=== PATIENT | male | born 1955 | race Caucasian/White ===

== ENCOUNTER → 2025-04-10 08:09 | Outpatient (BNVA) | payer MEDICARE, OTHER, SELFPAY | PROVIDERS: PCP Family Medicine; Referring Provider Neurological Surgery; Visit Provider Psychiatry & Neurology Neurology | DX: M21.372 Foot drop, left foot (principal); M48.061 Spinal stenosis, lumbar region without neurogenic claudication; G62.9 Polyneuropathy, unspecified; I10 Essential (primary) hypertension; E11.9 Type 2 diabetes mellitus without complications | CPT/HCPCS: 99215; 95886; 95908 ==

== ENCOUNTER 2025-06-20 08:52 | Emergency (ER) | payer MEDICARE, OTHER, SELFPAY ==
[2025-06-20 09:00] VITALS: BP 180/92; PULSE 87; RESP 18; TEMP 37.1
--- NOTE | 2025-06-20 09:15 | ED.GENADUL_ITS ---
Discharge Plan Disposition Patient Disposition: Home Condition: Good Discharge Details Clinical Impression: Quadriceps muscle rupture, Acute knee pain, Transaminitis Primary Care Provider: Tj Riley ED Provider: Mary Alice Alvarado Home Meds and New Rx's Prescriptions: Continued pravastatin 10 mg tablet 10 mg PO DAILY sertraline 50 mg tablet 50 mg PO DAILY pantoprazole 40 mg tablet,delayed release (DR/EC) 40 mg PO DAILY cyclobenzaprine 10 mg tablet 10 mg PO TID PRN glimepiride 1 mg tablet 0.5 mg PO DAILY amlodipine 10 MG tablet 10 mg PO DAILY No Action oxycodone 5 mg tablet 5 - 10 mg PO .q4-6h MDD 30 mg PRN (Reason: severe pain) Qty: 18 0RF aspirin 81 mg capsule 81 mg PO DAILY 7 Days Qty: 7 0RF Discharge Instructions Instructions: Knee Pain ED Additional Instructions: Your MRI shows a partial tear in your quadriceps tendon. As we discussed, you may or may not require surgery based on your pain level when you are reevaluated by Dr. Marcial. Please continue with the knee immobilizer to help with discomfort until you are reevaluated by him. Please call his office to schedule follow-up appointment, number listed below. As we also discussed, your labs do show slight elevation in some of your liver enzymes as well as slightly low lymphocytes which can indicate something like a tickborne illness such as Lyme. You have been tested for this and it takes about 5 days to receive the final results. Will call with any positive results. If you develop fever/chills, increased pain, inability stay hydrated or other new/worsening symptoms please seek care urgently once again. Otherwise, please keep your upcoming appointment with orthopedics and follow up with your primary care in 2 weeks to discuss blood work. Referrals: Morgan Marcial MD [ [facility] STAFF PHYSICIAN, Orthopaedic Surgical] Tj Riley [Primary Care Provider, Medicine] Discharge Data Discharge Date/Time-TO BE ENTERED AT DEPARTURE: 06/20/25 13:32 HPI General Date/Time Provider Initiated Documentation: 06/20/25 10:21 . Limitations to Documentation: no limitations . Information obtained by: patient, family (), RN/ (Dr. Marcial) and RN notes reviewed . History of Present Illness 69 year old M presents to the emergency department with the chief complaint of right knee pain, described as severe and similar to prior episodes (similar event 1.5 months ago), Quality is described as stabbing and aching, and is localized to the right and lower extremity. Patient reports no radiation. Patient started experiencing this day(s) and it has been constant. Immobilization improves symptom(s), Movement worsens symptoms . Patient notes no other symptoms. and weakness; denies chest pain, fever/chills, malaise, nausea/vomiting, rash and shortness of breath. Patient did receive the following treatments prior to arrival, NSAID Related Data Home Medications ?Medication ?Instructions ?Recorded ?Confirmed amlodipine 10 mg tablet 10 mg PO DAILY 12/12/1506/08 cyclobenzaprine 10 mg tablet 10 mg PO TID PRN 02/12/25 06/21/25 glimepiride 1 mg tablet 0.5 mg PO DAILY 02/12/25 pantoprazole 40 mg tablet,delayed 40 mg PO DAILY 04/1006/21/25 release pravastatin 10 mg tablet 10 mg PO DAILY 04/10/2506/08 sertraline 50 mg tablet 50 mg PO DAILY 04/10/2506/08 aspirin 81 mg capsule 81 mg PO DAILY prevent blood clot 06/21/25 7 days #7 caps oxycodone 5 mg tablet 5 - 10 mg (1 - 2 x 5 mg) PO .q4-6h 06/21/25 PRN severe pain #18 tabs Previous Rx's ?Medication ?Instructions ?Recorded aspirin 81 mg capsule 81 mg PO DAILY prevent blood clot 06/21/25 7 days #7 caps oxycodone 5 mg tablet 5 - 10 mg (1 - 2 x 5 mg) PO .q4-6h 06/21/25 PRN severe pain #18 tabs Allergies Allergy/AdvReac Type Severity Reaction Status Date / Time NSAIDS (Non-Steroidal Allergy Intermediate HX Verified 06/21/25 08:50 Anti-Inflamma NEPHRECTOMY fentanyl Allergy Unknown Other (See Verified 06/21/25 08:50 Comment) General Stated Complaint: Orthopedic BRANDON: 3 Review of Systems Constitutional Constitutional: Reports as per HPI, Denies chills and Denies fever(s) Cardiovascular Cardiovascular: Reports as per HPI Respiratory Respiratory: Reports as per HPI and Denies cough Musculoskeletal Musculoskeletal: Reports as per HPI and Denies tingling Integumentary/Breasts Skin/Breast: Reports as per HPI, Denies rash and Denies wounds Neurologic Neurologic: Reports as per HPI, Denies tingling and Denies paresthesias Exam Const General: cooperative, healthy appearing, comfortable, no acute distress, well developed and well groomed Nutritional Appearance: average body habitus and well nourished Orientation: alert and awake Resp Effort & Inspection: normal respiratory effort, able to speak in complete sentences and no respiratory distress Cardio Rate: regular rate Rhythm: regular rhythm Skin General skin exam: no rashes or lesions noted Lesions: no lesions Rashes: no rashes Trauma: no lacerations or abrasions Neuro General: patient alert and patient awake Cognition: normal cognition Speech: speech normal Sensory Exam: no sensory deficits noted Extrem Knee images: 2 1. Area of discomfort. Patient has slight deformity at the proximal knee with muscle atrophy. 2+ distal pulses. Able to flex to 90* actively, no leg raise. Sensation intact. No evidence of trauma, no swelling, ecchymosis. Small effusion. No erythema or warmth. Calf is soft and non-tender. No pain more proximally. Ligamentously intact with varus and valgus stress testing. No pain or laxity with anterior/posterior drawer testing. No joint line tenderness. Course Vital Signs Vital signs: Vital Signs Temperature 37.1 C 06/20/25 09:00 Pulse 87 06/20/25 09:00 Respiratory Rate 18 06/20/25 09:00 Blood Pressure 180/92 H 06/20/25 09:00 Temperature 37.1 C 06/20/25 09:00 Temperature Source Oral 06/20/25 09:00 Pulse 87 06/20/25 09:00 Respiratory Rate 18 06/20/25 09:00 Blood Pressure 180/92 H 06/20/25 09:00 Blood Pressure Position Supine 06/20/25 09:00 Oxygen Delivery Method Room Air 06/20/25 09:00 Oxygen Flow Rate 0 06/20/25 09:00 Pain Level 10 06/20/25 09:05 Medical Decision Making Patient is a 69-year-old gentleman, brought in by his , past medical history of ZACHARIAH, nonalcoholic fatty liver disease, hypercholesterolemia, renal carcinoma, GERD, gastric intestinal metaplasia, anxiety, status post nephrectomy, presenting today with chief complaint of right knee pain. He reports the pain has been severe for the past 2 days and that now he is having difficulty with any type of ambulation or mobility of the lower extremity. He does report that on Wednesday he was kneeling a lot trying to assist a family member who needed to have their leg elevated. Reports he was kneeling on grass for that length of time. He denies any significant injury. also reports that he did injure this knee about a month and a half ago and was very sore and having difficulty with mobility for about a week and a half at that point. He never returned to his typical gait after that injury but did not have this assessed. It sounds like the discomfort that he had already been having was greatly exacerbated 2 days ago. He denies any fevers or chills. No numbness or tingling. No prior surgeries. Patient was seen by physical therapy for chronic back pain and then was evaluated urgently by orthopedics this morning who prompted him come to the emergency department for evaluation. The patient has been using muscle relaxers, Tylenol and has found muscle relaxants to be very helpful. Consulted [facility] Dr. Marcial who evaluated him today. He wanted an XR and was concerned for possible quad rupture. He advised outpatient MRI, f/u in a week. Did not see indication of infection. Recommends CBC, ESR/CRP to see if quad injury + infection. I was able to augment the history with the injury about a 1.5mo ago per the . Aggie and I agree this is likely the insiting event and then he had recurrent injury over the weekend when he was kneeling. MRI is available this mornign On exam, patient appears nontoxic. Is resting comfortably with his hands over his head, appears to be sleeping frequently but is easily arousable. Exam of the right lower extremity reveals to be neurovascularly intact. He does have what appears to be a bug bite on the lateral upper aspect of the knee but the skin is nontender over this area and he does have a central area of whiteness which would be consistent with the bite and some surrounding pink skin. He has a small palpable effusion. He is not able to straight leg raise. He is able to flex to about 90 degrees. Ligamentously intact with varus and valgus stress testing as well as with anterior posterior drawer testing. No pain in the calf, normal Hagen test. He does have a bit of sag just superior to the patella consistent with Dr. Marcial's concern with possible quad rupture. However, he has no ecchymosis, swelling, erythema or evidence to suggest an acute traumatic injury. Labs reviewed. No leukocytosis. ESR WNL. CRP slightly elevated. Patient has slight lymphopenia and transaminitis. This raises concern for tick borne illness, this has been sent. Patient denied bites but states that they both have had exposure. MRI was able to be obtained. IMPRESSION: 1. Partial tear of the quadriceps tendon medially. 2. Abnormal signal is seen in both the medial lateral menisci suspicious for tear is. 3. No evidence of a ligament tear. 4. Moderate joint effusion. 5. Edema seen in the soft tissues anterior to the patella and the extensor mechanism. MRI reviewed by Dr. Marcial as well. We discussed care plan. He advised that patient does not need to have surgery but d/t the pain, may benefit from this. Advised he lkely suffered partial tear at the intial time of injury 1.5mo ago. The current pain is likely associated with overusing an injured joint and exacerbating his pain. No indication for acute infection at this time. No neurovascular disruption. He advised splint for comfort. Immobilizer was attempted but he did not tolerate well, transitioned to hinge which worked much better. Encouraged supportive care. He will f/u with Dr. Marcial. Will call with any positive Tick testing. Return precautions discussed. All of his questions and concerns were addressed, he is in agreement iwth this plan. PFSH All Active Problems (Updated 06/21/25 @ 09:17 by Morgan Marcial MD) Transaminitis (Acute) Acute knee pain (Acute) Rupture of right quadriceps tendon (Acute ~06/16/25) s/p Right knee quadriceps tendon debridement and repair 06/21/2025; Question of calcific tendinitis, gout, or pseudogout Small fiber neuropathy (Acute) Lumbar stenosis (Acute) Nocturnal leg cramps (Acute) IFG (impaired fasting glucose) (Acute) Hypertension (Chronic) Left-sided low back pain with sciatica (Acute) Left foot drop (Acute) LPRD (laryngopharyngeal reflux disease) (Acute) Allergic rhinitis due to pollen (Acute) Allergic rhinitis due to allergen (Acute) Medical History (Updated 06/21/25 @ 09:17 by Morgan Marcial MD) S/p nephrectomy ZACHARIAH (obstructive sleep apnea) NAFL (nonalcoholic fatty liver) Hypercholesterolemia History of renal carcinoma GERD (gastroesophageal reflux disease) Gastric intestinal metaplasia Anxiety Surgical History (Updated 06/21/25 @ 15:21 by JOHN Velazco) S/P left knee arthroscopy S/P wrist surgery S/P lumbar spine operation bilateral L1-L5 laminectomies Aug 2024 at [facility]; remote surgery x 3 in his 30s/40s Family History (Updated 04/10/25 @ 09:52 by Alyssa Oneal MD) Father Diabetes Brother Diabetes Sister Diabetes Mother Hypertension Social History (Updated 04/10/25 @ 09:53 by Alyssa Oneal MD) Smoking/Tobacco Use Status: Never Smoking risk assessment performed?: Yes Alcohol Intake: current Alcohol Intake frequency: holidays/special occasions only Alcohol type: beer Drug use: Never Substance use type: does not use Household members: spouse Housing: house Number of Children: 2 current occupation: Retired Do you feel safe at home: Yes Do you feel safe in your relationship?: Yes
--- NOTE | 2025-06-20 09:33 | DI.MRI_ITS ---
Exam(s) MR LOWER JOINT RT WO EXAM: MR LOWER JOINT RT WO CLINICAL HISTORY: severe pain, possible quad rupture. TECHNIQUE: Multiplanar multisequence MRI was performed. COMPARISON: No exams were available for comparison FINDINGS: The examination is limited due to patient motion artifact. BONES: There is no fracture or contusion pattern. JOINTS: There is mild thinning of the articular cartilage overlying the medial femoral condyle. There is a moderate joint effusion. TENDONS: Extensor mechanism: There is hyperintense signal seen within the quadriceps tendon which also appears mildly thickened. The abnormal signal is seen particularly medially and extends the length of the quadriceps tendon.. The findings are suspicious for partial tear. Medial retinaculum: Unremarkable. Lateral retinaculum: Unremarkable. Popliteus: Unremarkable. MUSCLES: Unremarkable. MENISCI: There is a tear involving the body and posterior horn of the medial meniscus. There is decreased size of the posterior horn of the medial meniscus. There is also hyperintense signal seen in the body of the posterior horn of the lateral meniscus which contacts the articular surface. The findings suspicious for tear. SOFT TISSUES: There is edema in the soft tissues anterior to the patella and the extensor mechanism. LIGAMENTS: Anterior Cruciate: Unremarkable. Posterior Cruciate: Unremarkable. Medial Collateral:Unremarkable. Lateral Collateral: Unremarkable. OTHER: IMPRESSION: 1. Partial tear of the quadriceps tendon medially. 2. Abnormal signal is seen in both the medial lateral menisci suspicious for tear is. 3. No evidence of a ligament tear. 4. Moderate joint effusion. 5. Edema seen in the soft tissues anterior to the patella and the extensor mechanism. DATA REPOSITORY:
[2025-06-20 10:08] LABS: Abs Immature Grans 0.02 10^3/uL (0.0-0.06); HCT 41.6 % (40.0-50.0); HGB 14.2 g/dL (13.5-17.5); Immature Grans % 0.3 %; MCH 28.5 pg (27.0-33.0); MCHC 34.1 % (32.0-36.0); MCV 83 fL (80-95); MPV 10.4 fL (8.0-11.0); Platelet Count 177 10^3/uL (130-400); RBC 4.99 10^6/uL (4.36-5.78); RDW 13.6 % (11.8-14.1); RDW-SD 41.1 fL; WBC 7.54 10^3/uL (4.4-10.8)
[2025-06-20 10:10] LABS: ESR 16 mm/hr (0-20)
[2025-06-20 10:51] LABS: ALT 107 U/L (16-63); AST 64 U/L (15-37); Albumin 3.9 g/dL (3.4-5.0); Alkaline Phosphatase 120 U/L (46-116); Anion Gap 7.0 mmol/L (3-11); BUN 14 mg/dL (7-18); Bilirubin, Total 1.1 mg/dL (0.2-1.0); C-Reactive Protein 3.34 mg/dL (<or=0.5); CO2 28.0 mmol/L (21.0-32.0); Calcium 9.1 mg/dL (8.5-10.1); Chloride 100 mmol/L (98-107); Estimated GFR 65.46 (mL/min/1.73m2); Glucose 200 mg/dL (74-106); Potassium 4.0 mmol/L (3.5-5.1); Sodium 135 mmol/L (136-145); Total Protein 7.4 g/dL (6.4-8.2)
[2025-06-20 13:04] VITALS: BP 167/96; PULSE 83; O2SAT 95
[2025-06-21 10:23] LABS: Lyme Ab w Rflx to Lyme Confirm Negative (Negative)
[2025-06-21 11:43] LABS: Uric Acid 5.8 mg/dL (3.5-7.2)
[2025-06-22 23:27] LABS: B. miyamotoi PCR Negative (Negative); Babesia divergens/MO-1 Negative (Negative); Ehrlichia muris eauclairensis Negative (Negative)
--- NOTE | 2025-07-02 11:15 | NUR.NOTE ---
Access chart to print the provider note and the radiology report to fax to [facility] for billing purposes. Nursing Note:
== END 2025-06-20 13:32 | disposition home or self-care (01) ==
PROVIDERS: Student in an Organized Health Care Education/Training Program; Emergency Provider Physician Assistant; PCP Family Medicine
DX: S76.111A Strain of right quadriceps muscle, fascia and tendon, initial encounter (principal); M25.561 Pain in right knee; R74.01 Elevation of levels of liver transaminase levels; X58.XXXA Exposure to other specified factors, initial encounter
CPT/HCPCS: 99284 ×2; 29505; 73721; 80053; 85652; 87798; 99215; 73560; 84550; 85025; 86140; 86618

== ENCOUNTER 2025-06-20 09:17 | Outpatient (CLI) | payer MEDICARE, OTHER, SELFPAY ==
--- NOTE | 2025-06-20 08:00 | DI.RAD_ITS ---
Exam(s) XR KNEE RT 2V AP,LAT EXAM: XR KNEE RT 2V AP,LAT CLINICAL HISTORY: right knee pain. TECHNIQUE: 2D digital imaging was performed of the right knee. Two views obtained. AP and lateral views were obtained. COMPARISON: No exams were available for comparison FINDINGS: BONES: No acute fracture is present. No bony destructive lesion is seen. Enthesophyte is seen at the superior patella. JOINTS: The knee is normally aligned. No joint effusion is seen. SOFT TISSUE: There is soft tissue swelling anterior to the quadriceps tendon. Atherosclerotic calcification is present. IMPRESSION: 1. Soft tissue swelling anterior to the quadriceps tendon. 2. There is no acute fracture or dislocation. DATA REPOSITORY: RADIATION DOSE DELIVERED:
== END 2025-06-20 09:18 | disposition home or self-care (01) ==
LOC: DIORS 09:17
PROVIDERS: PCP Family Medicine; Referring Provider Family Medicine; Visit Provider Student in an Organized Health Care Education/Training Program
DX: S76.111A Strain of right quadriceps muscle, fascia and tendon, initial encounter (principal); X58.XXXA Exposure to other specified factors, initial encounter; M25.561 Pain in right knee; I10 Essential (primary) hypertension; E11.9 Type 2 diabetes mellitus without complications
CPT/HCPCS: 99215; 73560

== ENCOUNTER 2025-06-21 08:39 | Day surgery (SDC) | payer MEDICARE, OTHER, SELFPAY ==
[2025-06-21] VITALS (18 sets, daily range): BP systolic 157–170; BP diastolic 89–110; PULSE 62–98; RESP 15–24; TEMP 36.2–36.7; O2SAT 93–96; BMI 30.8
--- NOTE | 2025-06-21 09:17 | W.PM.DSUDISC ---
Date of service: 06/21/25 Discharge Plan Disposition Patient Disposition: Home Condition: Stable Discharge Details Attending Provider: Morgan Marcial Primary Care Provider: Tj Riley Home Meds and New Rx's Prescriptions: New oxycodone 5 mg tablet 5 - 10 mg PO .q4-6h MDD 30 mg PRN (Reason: severe pain) Qty: 18 0RF aspirin 81 mg capsule 81 mg PO DAILY 7 Days Qty: 7 0RF Continued pravastatin 10 mg tablet 10 mg PO DAILY sertraline 50 mg tablet 50 mg PO DAILY pantoprazole 40 mg tablet,delayed release (DR/EC) 40 mg PO DAILY cyclobenzaprine 10 mg tablet 10 mg PO TID PRN glimepiride 1 mg tablet 0.5 mg PO DAILY amlodipine 10 MG tablet 10 mg PO DAILY Discharge Instructions Additional Instructions: Surgery: Right knee quadriceps tendon debridement and repair 06/21/2025; Question of calcific tendinitis, gout, or pseudogout Activity: Weightbearing as tolerated. No brace or crutches needed as soon as comfortable and stable on knee. Restore full knee extension as soon as possible. Gradually advance flexion. Perform early quad sets/quadriceps isometrics. Recommend elevation to minimize swelling discomfort. Encourage ankle pumps and wiggle toes to improve circulation. A physical therapy prescription will be sent electronically to begin in about 2-3 weeks. ACCELERATED quadriceps repair protocol: Immediate full range of motion okay including active knee extension. Concentric strengthening at 2 months. Eccentric at 3 months. Prescriptions: Avoid NSAIDs due to nephrectomy Aspirin 81 mg take 1 daily to prevent a blood clot for 7 days, starting tomorrow morning Oxycodone 5 mg take 1-2 every 4-6 hours as needed for severe pain You may use [id number] Tylenol (acetaminophen) as needed for mild pain. These pain medications may be taken all at once or in different combinations as needed. Also, recommend Colace (docusate) as a stool softener as surgery and pain medicine cause constipation. You may try [id number] diphenhydramine (Benadryl) 25-50 mg nightly as a sleep aid Dressings: Leave dressing in place until follow-up. Please keep clean and dry at all times. Follow-up: 10-[address] Marcial You may take off the leg compression stockings this evening at home. You may also leave them on a few days longer if you have a history of leg swelling or edema. Let us know right away if you develop any redness, drainage, fevers, chest pain, or trouble breathing. Do not drink alcohol or drive for at least 24 hours after anesthesia. Please call the office during business hours with any questions or concerns. Discharge Orders Discharge Orders: Discharge Order (Routine); Ordered 06/21/25 Ordered By: Morgan Marcial DS: Diagnosis Discharge Diagnosis (1) Rupture of right quadriceps tendon: Status: Acute
[2025-06-21] MEDS: Lactated Ringers 1,000 ML 30 ML IV (09:20)
--- NOTE | 2025-06-21 09:26 | ANES.PREOP_ITS ---
General Info Date of Service Date Performed: 06/21/25 Height: 5 ft 10 in Weight: 97.5 kg Body Mass Index (BMI): 30.8 Surgical Procedure: Operation Date: 06/21/25 10:10 Proposed Procedure Side Surgeon p Knee Ruptured Quad Tendon Repair and Debridement Right Morgan Marcial MD Meds Allergies and Home Medications Allergies Allergy/AdvReac Type Severity Reaction Status Date / Time NSAIDS (Non-Steroidal Allergy Intermediate HX Verified 06/21/25 08:50 Anti-Inflamma NEPHRECTOMY fentanyl Allergy Unknown Other (See Verified 06/21/25 08:50 Comment) Home Medication ?Medication ?Instructions ?Recorded amlodipine 10 mg tablet 10 mg PO DAILY 12/12/15 cyclobenzaprine 10 mg tablet 10 mg PO TID PRN 02/12/25 glimepiride 1 mg tablet 0.5 mg PO DAILY 02/12/25 pantoprazole 40 mg tablet,delayed 40 mg PO DAILY 04/10 release pravastatin 10 mg tablet 10 mg PO DAILY 04/10/25 sertraline 50 mg tablet 50 mg PO DAILY 04/10/25 Current Visit Medications: Current Medications Generic Name Dose Route Start Last Admin Trade Name Freq PRN Reason Stop Dose Admin Ringer's Solution 1,000 mls @ 30 mls/hr 06/21/25 06:00 06/21/25 09:20 IV 06/21/25 23:59 30 mls/hr INFUSION PATITO Administration Cefazolin Sodium/Dextrose 2 gm in 50 mls @ 100 mls/hr 06/21/25 06:00 Ancef Duplex IVPB 06/21/25 23:59 PREOP PATITO Tranexamic Acid/Sodium Chloride 1,000 mg in 100 mls @ 600 mls/hr 06/21/25 06:00 IVPB 06/21/25 23:59 PREOP PATITO IV Miscellaneous Supplies 1 each 06/21/25 06:00 Iv Access IV 06/21/25 23:59 DIRECTED PATITO Sodium Chloride 0 ml 06/21/25 06:00 Normal Saline Flush 10 Ml Syr IV 06/21/25 23:59 PRN PRN Sodium Chloride 0 ml 06/21/25 06:00 Normal Saline 10 Ml Vial IJ 06/21/25 23:59 DIRECTED PRN Sterile Water 0 ml 06/21/25 06:00 Water,Injection,Sterile 10 Ml Vial IJ 06/21/25 23:59 DIRECTED PRN COUNTS INCLUDE 234 BEDS AT THE [facility] Active Problems Active Problems: Problem Status Onset Code Transaminitis Acute R74.01 Acute knee pain Acute M25.569 Rupture of right quadriceps tendon Acute ~06/16/25 S76.111A Small fiber neuropathy Acute G62.9 Lumbar stenosis Acute M48.061 Nocturnal leg cramps Acute G47.62 IFG (impaired fasting glucose) Acute R73.01 Hypertension Chronic I10 Left-sided low back pain with sciatica Acute M54.42 Left foot drop Acute M21.372 LPRD (laryngopharyngeal reflux disease) Acute K21.9 Allergic rhinitis due to pollen Acute J30.1 Allergic rhinitis due to allergen Acute J30.9 Medical History Medical History (Updated 06/21/25 @ 09:17 by Morgan Marcial MD) S/p nephrectomy ZACHARIAH (obstructive sleep apnea) NAFL (nonalcoholic fatty liver) Hypercholesterolemia History of renal carcinoma GERD (gastroesophageal reflux disease) Gastric intestinal metaplasia Anxiety Surgical History Surgical History S/P left knee arthroscopy S/P wrist surgery S/P lumbar spine operation bilateral L1-L5 laminectomies [address] [facility]; remote surgery x 3 in his 30s/40s Tobacco Smoking/Tobacco Use Status: Never Passive smoking exposure: Yes Alcohol Alcohol Intake: current Alcohol intake frequency: holidays/special occasions only Alcohol type: beer Substance Use Substance use: Never Substance use type: does not use Vital Signs and Lab Results Vital Signs Most Recent Vital Signs in EMR: Most Recent Vital Signs Temp Pulse Resp BP Pulse Ox 36.2 C L 98 H 16 169/108 H 95 06/21/25 08:41 06/21/25 08:41 06/21/25 08:41 06/21/25 09:25 06/21/25 08:41 Lab Results Complete Blood Count: WBC, (4.4-10.8) 7.54 10^3/uL 06/20/25, 09:54 RBC, (4.36-5.78) 4.99 10^6/uL 06/20/25, 09:54 Hgb, (13.5-17.5) 14.2 g/dL 06/20/25, 09:54 Hct, (40.0-50.0) 41.6 % 06/20/25, 09:54 Plt Count, (130-400) 177 10^3/uL 06/20/25, 09:54 Complete Metabolic Panel: Sodium, (136-145) 135 mmol/L L 06/20/25, 09:54 Potassium, (3.5-5.1) 4.0 mmol/L 06/20/25, 09:54 Chloride, (98-107) 100 mmol/L 06/20/25, 09:54 Carbon Dioxide, (21.0-32.0) 28.0 mmol/L 06/20/25, 09 :54 BUN, (7-18) 14 mg/dL 06/20/25, 09:54 Creatinine, (0.70-1.30) 1.2 mg/dL 06/20/25, 09:54 Est GFR (CKD-EPI 2020), (mL/min/1.73m2) 65.46 06/20/25, 09:54 Calcium, (8.5-10.1) 9.1 mg/dL 06/20/25, 09:54 Albumin, (3.4-5.0) 3.9 g/dL 06/20/25, 09:54 Glucose, (74-106) 200 mg/dL H 06/20/25, 09:54 C-Reactive Protein, (<or=0.5) 3.34 mg/dL H 06/20/25, 09:54 Liver Function Panel: ALT, (16-63) 107 U/L H 06/20/25, 09:54 AST, (15-37) 64 U/L H 06/20/25, 09:54 Anesthesia Assessment and Plan Anesthesia History Personal History: No History of Anesthesia Complications Family History: No Family History of Anesthesia Complications Exercise Tolerance Exercise Tolerance: Metabolic Equivalents>4 Pertinent Negatives Pertinent Negatives: No Symptoms of GERD (well-controlled with meds, food- related only), No Major Cardiovascular Symptoms or Complaints and No Major Pulmonary Symptoms or Complaints Cardiac & Pulmonary Exam Cardiac Exam: Normal S1/S2 Heart Sounds Pulmonary Exam: Clear Bilateral Breath Sounds Cardiac and Pulmonary Comment:: Inspire device for sleep apnea Implantable Cardiac Device Does patient have a Pacemaker or an ICD?: No Airway Exam Known Difficult Airway: No Mallampati Class: 2 Mouth Opening: Normal (> 3cm) Thyromental Distance: Greater than 3 cm Neck Range of Motion: Full ROM Neck Circumference: Normal Teeth Condition: Normal Dentition ASA Classification ASA Score: ASA 3 Emergency Case?: No NPO Status NPO Status: NPO Clears >2 hours, Solids >8 hours Anesthesia Plan Resuscitation Status: Full Code Anesthesia Technique: General Anesthesia Airway Planned: Endotracheal Tube Pain Management: Other (Rescue Post op femoral nerve block as needed for post op pain) Monitors Used: Standard Monitors Preoperative Comments:: S/P nephrectomy for CA
--- NOTE | 2025-06-21 09:36 | W.PM.OP ---
Operative Note Operative Note PRE-OP DIAGNOSIS: Right quadriceps tendinopathy and rupture POST-OP DIAGNOSIS: same Question of calcific tendinitis, gout, or pseudogout PROCEDURE: Right quadriceps tendon repair, CPT #45489 SURGEON: Morgan Marcial RESEARCH SCIENTIST: Kayleigh Deluna ANESTHESIA TYPE: Local By Surgeon and General LMA/ETT Refer to Anesthesia Record ESTIMATED BLOOD LOSS: 10 PATHOLOGY: other (Toothpaste-calcific tendinitis like material for crystal analysis) COMPLICATIONS: None Patient was transported to: PACU Patient's condition: stable Implants: None Indications: Please see complete medical record for details. Findings: Significant soft tissue and quadriceps inflammation and tendinopathy. Moderate to high-grade somewhat multifocal central to lateral quadriceps thinning and partial tearing around a few small areas of calcific tendinitis. Normal?appearing joint effusion. Nothing that appeared as infection. No obvious significant quadriceps traumatic tearing. Procedure Description: In the operating room, general anesthesia was induced. The patient was positioned supine on the operating room table. All bony prominences were well-padded. Preoperative antibiotics were administered. The knee was prepped and draped in the usual sterile fashion. The correct patient, procedure, and side of the procedure were all verified prior to incision. A longitudinal moderately sized incision was made full-thickness approach centered over the superior margin patella and moderate steps tendon. The quadriceps tendon and pretendinous/patellar fat and bursa were encountered. The fat and bursa were inflamed and removed exposing the margins of the quadriceps tendon. It appeared fairly normal central to medial with some moderate thinning in a few places laterally centrally to distally. The tendon overall at least in the surface had a remarkably normal appearance. The tendon was superficially debrided and did not expose anything more dramatic. The tendon was then split in line with the fibers centrally in order to gain access to the joint and the tendon substance, which appeared to have significant abnormality on the MRI. The joint fluid was expressed and copiously irrigated without significant problems here. The tendon centrally to medially had some yellow color but no significant intrasubstance tearing or degeneration. Laterally on probing with the [place] and expression with the [place] between the layers and rongeur and various thinned areas eventually a few small areas of calcium/toothpaste like material was able to be expressed. It was removed and specimen cup sent to the lab for analysis. The joint was copiously irrigated. The tendon was inspected thoroughly and all margins locations for any additional abnormal material to express and thoroughly debrided about the areas of remove calcium. The tendon remade intact mark attachments to the patella. A loop link suture was then used to close the longitudinal split tear watertight fashion. Deep layers were copiously irrigated with Betadine followed by saline. Subcutaneous closed 2-0 Monocryl buried erupted followed by 3-0 Monocryl running subcuticular and skin glue over the incision followed by Mepilex bandage and 6 inch Jeison wrap gently about the knee. The patient awoke from anesthesia without complication and was transferred to the recovery room in a stable condition. Date of Procedure: 06/21/25
[2025-06-21] MEDS: ceFAZolin 2 GM/50 ML BAG IVPB (10:00)
[2025-06-21] MEDS: TRANEXAMIC ACID/SOD. CHL. 1,000 MG/100 ML BAG 600 MG IVPB (10:08)
[2025-06-21] MEDS: Bupivacaine 0.25% Pres-Free W/EPI 30 ML VIAL (10:33)
--- NOTE | 2025-06-21 11:00 | TENDON_PTH ---
PATIENT: Vishal Roberts LOC: [facility] U#:[id number] AGE/SX: 69/M ROOM: RE06/21/[address]: Morgan Marcial MD : 1955 BED: DIS: 06/21/2025 SPEC #: [id number] RECD: 06/21/25 11:40 STATUS: LUIS ALFREDO REQ #: [id number] JEANNETTE: 06/21/25 11:[address]: Morgan Marcial DEPT: Surgical Specimen RECD BY: Lizzy Richards ENTERED: 06/21/25 11:41 SP TYPE: TENDON OTHR DR: Tj Riley Tissues: 1 - TENDON SHEATH, NOS Procedures: GROSS AND MICRO LEVEL 4 Comments: [id number] (SAME SAMPLE IN 2 CONTAINERS IN 100% ETHANOL)
--- NOTE | 2025-06-21 12:39 | W.ANESPOSTOP ---
Postoperative Evaluation Date, Time and Location Date Performed: 06/21/25 Time Performed: 12:41 Patient Location: Day Surgery Unit Vital Signs Most Recent Imported Vital Signs: Most Recent Vital Signs Temp Pulse Resp BP Pulse Ox 36.2 C L 70 16 170/90 H 94 06/21/25 12:08 06/21/25 12:08 06/21/25 12:08 06/21/25 12:08 06/21/25 12:08 Pain Score Most Recent Pain Score: Most Recent Pain Score Pain Level 5 06/21/25 12:08 Assessment Mental Status: Awake (Alert & Oriented to Patient Baseline) Airway and Respiratory Function: Patent airway with normal (patient baseline) respiratory exam Cardiovascular Function: Hemodynamically Stable Hydration Status: Adequately Hydrated Nausea & Vomiting: No Nausea or Vomiting Pain: Pain is tolerable per patient Peripheral Nerve Block: Patient did not receive a nerve block
== END 2025-06-21 13:10 | disposition home or self-care (01) ==
PROVIDERS: PCP Family Medicine; Visit Provider Student in an Organized Health Care Education/Training Program
PROC: (CPT 27385; principal; 2025-06-21 10:00)
DX: S76.111A Strain of right quadriceps muscle, fascia and tendon, initial encounter (principal); X58.XXXA Exposure to other specified factors, initial encounter; M1A.0611 Idiopathic chronic gout, right knee, with tophus (tophi)
CPT/HCPCS: 27385; 88305; 84550; 88304; J0131; J0690; J1100; J1885; J2003; J2371; J2405; J2704

== ENCOUNTER → 2025-07-03 09:28 | Outpatient (BNVA) | payer MEDICARE, OTHER, SELFPAY | PROVIDERS: PCP Family Medicine; Referring Provider Family Medicine; Visit Provider Student in an Organized Health Care Education/Training Program | DX: S76.111D Strain of right quadriceps muscle, fascia and tendon, subsequent encounter (principal); M10.9 Gout, unspecified; X58.XXXD Exposure to other specified factors, subsequent encounter | CPT/HCPCS: 99024 ==

== ENCOUNTER → 2025-09-05 08:48 | Outpatient (BNVA) | payer MEDICARE, OTHER, SELFPAY | PROVIDERS: PCP Family Medicine; Referring Provider Family Medicine; Visit Provider Student in an Organized Health Care Education/Training Program | DX: S76.111D Strain of right quadriceps muscle, fascia and tendon, subsequent encounter (principal); X58.XXXD Exposure to other specified factors, subsequent encounter; M10.9 Gout, unspecified | CPT/HCPCS: 99024 ==